=== PATIENT | male | born 1990 ===

== ENCOUNTER 2019-10-02 13:09 | Emergency (ER) | payer OTHER ==
[~2019-10-02] VITALS: Ht 188 cm; Wt 81.7 kg
[~2019-10-02 13:09] MED LIST: Cleocin HCl150 MG PO
[2019-10-02 13:46] LABS: BASOPHILS ABSOLUTE AUTO 0.04 K/mm3 (0.00-0.23); BASOPHILS PERCENT AUTO 1 % (0-2); EOSINOPHILS ABSOLUTE AUTO 0.04 K/mm3 (0.00-0.68); EOSINOPHILS PERCENT AUTO 1 % (0-6); Hematocrit 46.8 % (37.0-53.0); Hemoglobin 14.5 g/dL (13.5-17.5); IMMATURE GRAN ABSOLUTE AUTO 0.02 K/mm3 (0.00-0.10); IMMATURE GRAN PERCENT AUTO 0 % (0-1); LYMPHOCYTES ABSOLUTE AUTO 1.84 K/mm3 (0.84-5.20); LYMPHOCYTES PERCENT AUTO 21 % (21-46); MONOCYTES ABSOLUTE AUTO 0.64 K/mm3 (0.16-1.47); MONOCYTES PERCENT AUTO 7 % (4-13); Mean Corpuscular HGB 25.2 pg (26.0-34.0); Mean Corpuscular Volume 81 fL (80-100); Mean Platelet Volume 10.8 fL (9.1-12.4); NEUTROPHILS PERCENT AUTO 71 % (41-73); Platelet Count 239 K/mm3 (150-400); RDW Coefficient Variation 15.1 % (11.7-14.2); RDW Standard Deviation 44.5 fL (35.1-46.3); Red Blood Cell Count 5.76 M/mm3 (4.30-5.90); White Blood Cell Count 8.88 K/mm3 (4.00-11.30)
[2019-10-02 14:01] LABS: Anion Gap 8 mmol/L (6-16); Blood Urea Nitrogen 10 mg/dL (8-24); Bun/Creatinine Ratio 11.3 (12.0-20.0); CO2, Blood 24 mmol/L (21-32); Calcium, Blood 9.4 mg/dL (8.5-10.1); Chloride, Blood 110 mmol/L (98-108); Creatinine, Blood 0.89 mg/dL (0.60-1.20); Glomerular Filtration Rate >60 (60-); Glucose, Blood 104 mg/dL (70-99); Potassium, Blood 3.5 mmol/L (3.5-5.5); Sodium, Blood 142 mmol/L (136-145)
[2019-10-02 14:19] LABS: Creatine Kinase MB 4.4 ng/mL (0.0-3.6); Creatine Kinase MB Index 1.1 (0.0-4.0)
[2019-10-02] MEDS ORDERED: Norco 5-325 Ta1 EACH PO (14:55)
== END 2019-10-02 15:29 | disposition home or self-care (01) ==
LOC: ER 13:09
PROVIDERS: Physician Assistant
DX: S52.322A Displaced transverse fracture of shaft of left radius, initial encounter for closed fracture (principal); S52.612A Displaced fracture of left ulna styloid process, initial encounter for closed fracture; F17.210 Nicotine dependence, cigarettes, uncomplicated; W22.8XXA Striking against or struck by other objects, initial encounter
CPT/HCPCS: 29105; 36415; 73090; 80048; 82550; 82553; 85025; 93931; 99284-25; A9270-GY

== ENCOUNTER 2019-10-10 05:50 | Day surgery (SDC) | payer OTHER ==
[~2019-10-10] VITALS: Ht 188 cm; Wt 85.4 kg
[~2019-10-10 05:50] MED LIST changes: +Norco 5-325 Ta1 EACH PO
--- NOTE | 2019-10-10 07:00 | NUR ---
History, Chart, Medications and Allergies reviewed before start of procedure. Patient confirms NPO status and agrees with scheduled surgery. Lungs clear T/O to Auscultation. Pre-Op teaching done. Pt verbalizes understanding. DR MYRICK AT BEDSIDE, FULL REPORT REGARDING DISCLOSED USE OF HEROIN SHOT UP YESTERDAY MORNING IN HIS RIGHT NECK. HE STATES THAT HIS NOW EX-GIRLFRIEND HAD THE HEROIN AND HE WAS HURTING, SO HE USED IT. IT WAS A SIMILAR AMOUNT TO WHAT HE USED TO USE PRIOR TO SPENDING 30 DAYS IN ALF AND IT WAS TOO MUCH PER PATIENT REPORT AND THAT AN AMBULANCE WAS CALLED, BUT HE WASN'T TRANSPORTED TO A HOSPITAL, HE THEN SLEPT UNTIL THIS MORNING. DR LIU UPDATED THAT PATIENT IS HERE AND WE ARE PROCEEDING WITH ADMIT FOR SURGERY.
--- NOTE | 2019-10-10 07:32 | NUR ---
DISCUSSED PATIENT'S NEED FOR TRANSPORTATION WITH CLINICAL COORDINATOR, SHE TALKED WITH THE PATIENT AND HIS GUEST AND HIS GUEST AGREES TO ACCOMPANY HIM HOME TODAY IN A CAB. WE WILL OBTAIN A VOUCHER FOR A CAB RIDE HOME. DR LIU AWARE AND STATES AGREEMENT WITH PLAN PRIOR TO SURGERY.
== END 2019-10-10 11:02 | disposition home or self-care (01) ==
LOC: ORSCMMR 05:50 → ORD 07:30 → ORSCMMR 07:30
PROVIDERS: Orthopaedic Surgery
PROC: 0PSJ04Z Reposition Left Radius with Internal Fixation Device, Open Approach (ICD-10-PCS; principal; 2019-10-10 07:30)
DX: S52.302A Unspecified fracture of shaft of left radius, initial encounter for closed fracture (principal); F17.210 Nicotine dependence, cigarettes, uncomplicated
CPT/HCPCS: C1713; J0690; J1100; J1170; J1885; J2250; J2405; J2704; J3010; J7120

== ENCOUNTER 2025-02-19 04:02 | Emergency (ER) | payer OTHER ==
[~2025-02-19] VITALS: Ht 188 cm; Wt 83.9 kg
[2025-02-19 04:15] VITALS: BP 152/104
[2025-02-19] MEDS ORDERED: Ibuprofen 600 MG Tab PO ONE (04:20)
[2025-02-19] MEDS ORDERED: IBU600 MG PO (04:46)
== END 2025-02-19 05:00 | disposition home or self-care (01) ==
LOC: ER 04:02
DX: M79.631 Pain in right forearm (principal); F17.210 Nicotine dependence, cigarettes, uncomplicated
CPT/HCPCS: 73090; 99283-25; A9270